=== PATIENT | male | born 1990 | race Caucasian/White ===

== ENCOUNTER 2022-12-01 10:02 | Emergency (ER) | payer OTHER, MEDICAID, SELFPAY ==
[2022-12-01 10:08] VITALS: BP 132/83; PULSE 101; RESP 16; TEMP 36.3; O2SAT 97; BMI 29.7
--- NOTE | 2022-12-01 10:30 | CRLHL7_ITS ---
For Patients: As a result of the Cures Act, medical imaging exams and procedure reports are released immediately into your electronic medical record. You may view this report before your referring provider. If you have questions, please contact your health care provider. Indication: Trauma. Technique: Left 3rd finger 3 views. Comparison: None. Findings: Bones: Alignment is normal. No fractures or bone lesions. Joint spaces: Unremarkable. Soft tissues: Unremarkable. Impression: No sign of acute injury. Dictated by Jono Walker MD @ 12/01/2022 10:50:10 AM (Electronically Signed)
--- NOTE | 2022-12-01 10:33 | ED_ITS ---
HPI - General Adult General Chief complaint: Extremity Pain/Injury, Upper Stated complaint: L hand middle finger pain Time Seen by Provider: 12/01/22 10:19 History of Present Illness HPI narrative: This 32-year-old male comes in with an injury to the distal portion of his left middle finger. He was using his snow throat or and it became jammed. He knows that he did the wrong thing by trying to release that by this wiping his hand into the auger with the engine running in the auger Dr. Farmer. He injured the distal portion of the left middle finger. He has erythema there but there is no break in the skin. About fiber 10 minutes after the injury event he became lightheaded temporarily but did not lose consciousness. He does not report any other injury. Related Data Home Medications Medication Instructions Recorded Confirmed lurasidone 60 mg tablet (Latuda) 60 mg PO QDAY 03/07/22 12/01/22 dextroamphetamine-amphetamine ER 1 cap PO QAM 12/01/22 12/01/22 20 mg 24hr capsule,extend release (Adderall XR) propranolol 20 mg tablet 20 mg PO BID 12/01/22 12/01/22 Allergies Allergy/AdvReac Type Severity Reaction Status Date / Time No Known Drug Allergies Allergy Verified 12/01/22 10:11 Review of Systems Status of ROS: Reports: 10 or more systems reviewed and unremarkable except as noted in History and below Narrative: Constitutional: No fevers, no weight gain or loss. Eyes: No discharge. No vision changes. HENT: No congestion, no sore throat, no ear pain. Cardiovascular: No chest pain, no palpitations. Respiratory: No shortness of breath, no wheezes, no cough. Gastrointestinal: No abdominal pain, no vomiting, no diarrhea. Genitourinary: No dysuria, no hematuria. Musculoskeletal: Normal range of motion. Left middle finger injury as described above. Skin: No rashes, no pruritis. Neurological: No dizziness, weakness, sensory change, speech change. Endo/Heme/Allergies: No bruising or bleeding. No polydipsia. Pysch: no suicidality, no anxiety, no insomnia. All other systems reviewed and are negative. PFSH PFSH Social History Smoking Status: Former smoker Do you use any of these nicotine containing products: Vaping Products How often do you have a drink containing alcohol: never AUDIT-C Alcohol total score: 0 Non-prescribed substance use: denies use Exam Narrative: Exam Narrative: Constitutional: Well-developed, well-nourished, no acute distress. HEENT: Normocephalic, atraumatic. Neck: Normal range of motion. Nontender. Supple. Heart: Intact distal pulses. Lungs: No chest discomfort. No wheezes, rhonchi, or rales. Abdomen: Nontender. Back: Normal range of motion. Extremities: Normal range of motion. Distal portion of the left middle finger has erythema without any sign of abrasion or laceration. There is no subungual hematoma. Range of motion is intact. Skin: Intact. No rash. Warm. No erythema or pallor. Neurologic: No altered sensation. No weakness. Alert and oriented. Psychiatric: No suicidality. No anxiety or depression. No insomnia. Nursing notes and vitals signs are reviewed. Const: Vital Signs, click to edit/add: Vital Signs - 24 hr 12/01/22 10:08 Temperature 97.4 F L Pulse Rate [Left P ulse Oximeter] 101 H Respiratory Rate 16 Blood Pressure [Ri ght Upper Arm] 132/83 Pulse Oximetry 97 Oxygen Delivery Me thod Room Air Course Vital Signs Vital signs: Initial Vital Signs Temperature 97.4 F L 12/01/22 10:08 Temperature Source Temporal Artery Scan 12/01/22 10:08 Pulse Rate 101 H 12/01/22 10:08 Respiratory Rate 16 12/01/22 10:08 Blood Pressure 132/83 12/01/22 10:08 Blood Pressure Mean 99 12/01/22 10:08 Blood Pressure Position Sitting 12/01/22 10:08 Pulse Oximetry 97 12/01/22 10:08 Oxygen Delivery Method Room Air 12/01/22 10:08 Vital Signs Temperature 97.4 F L 12/01/22 10:08 Pulse Rate 101 H 12/01/22 10:08 Respiratory Rate 16 12/01/22 10:08 Blood Pressure 132/83 12/01/22 10:08 Pulse Oximetry 97 12/01/22 10:08 Oxygen Delivery Method Room Air 12/01/22 10:08 Temperature 97.4 F L 12/01/22 10:08 Pulse Rate 101 H 12/01/22 10:08 Respiratory Rate 16 12/01/22 10:08 Blood Pressure 132/83 12/01/22 10:08 Pulse Oximetry 97 12/01/22 10:08 Oxygen Delivery Method Room Air 12/01/22 10:08 Medical Decision Making MDM Narrative Medical decision making narrative: This patient comes in with an injury to his left middle finger. There is no abrasion or laceration. He does have some erythema from a contusion. X-ray images show no acute findings. He is okay to be discharged home and encouraged use [id number] medicines as needed and directed. Imaging Data XR L Middle Finger: Radiologist's impression: No sign of acute injury. Discharge Plan Discharge Clinical Impression: Finger injury Patient Disposition: Home, Self-Care Condition: Stable Additional Instructions: Use [id number] medicines as needed and directed. Follow up with MD return if worsening. Prescriptions: No Action Latuda 60 mg tablet 60 mg PO QDAY Patient Comments: TAKE 1 TABLET BY MOUTH DAILY IN THE EVENING WITH FOOD dextroamphetamine-amphetamine [Adderall XR] 20 mg capsule,extended release 24hr 1 cap PO QAM propranolol 20 mg tablet 20 mg PO BID Follow Up/Referrals: Provider,Not a Local [Primary Care Provider] - Stand Alone Forms: [employer] Info Instructions
== END 2022-12-01 11:33 | disposition home or self-care (01) ==
PROVIDERS: Emergency Provider Emergency Medicine Emergency Medical Services
DX: S67.192A Crushing injury of right middle finger, initial encounter (principal); W31.89XA Contact with other specified machinery, initial encounter
CPT/HCPCS: 73140; 99283; 99284

== ENCOUNTER 2023-08-01 14:00 | Outpatient (CLI) | payer OTHER, MEDICAID, SELFPAY | END 2023-08-01 14:01 | disposition home or self-care (01) | PROVIDERS: Visit Provider Nurse Practitioner Family | DX: Z11.3 Encounter for screening for infections with a predominantly sexual mode of transmission (principal); Z72.51 High risk heterosexual behavior | CPT/HCPCS: 86592; 86703 ==

== ENCOUNTER 2023-08-05 16:45 | Emergency (ER) | payer OTHER, MEDICAID, SELFPAY ==
[2023-08-05 17:38] VITALS: BP 134/90; PULSE 90; RESP 18; TEMP 36.9; O2SAT 98; BMI 31.7
--- NOTE | 2023-08-05 20:33 | CRLHL7_ITS ---
For Patients: As a result of the Century Cures Act, medical imaging exams and procedure reports are released immediately into your electronic medical record. You may view this report before your referring provider. If you have questions, please contact your health care provider. INDICATION: Fever/cough TECHNIQUE: Two view chest. FINDINGS: The lungs are clear. The heart, mediastinum and pulmonary vessels are of normal size. There is no evidence of pleural disease. IMPRESSION: Negative chest. Dictated by Conchita Rodriguez MD @ 08/05/2023 9:55:58 PM (Electronically Signed)
[2023-08-05 20:50] LABS: Lactate* 1.7 mmol/L (0.5-1.9)
[2023-08-05 20:51] LABS: Basophils Absolute Auto 0.06 K/uL (0.00-0.30); Basophils Percent Auto 0.6 % (0.0-3.0); Eosinophils Absolute Auto 0.64 K/uL (0.00-0.50); Eosinophils Percent Auto 6.1 % (0.0-7.0); Hematocrit 42.4 % (37.0-53.0); Hemoglobin* 14.6 gm/dL (13.5-17.5); Immature Granulocytes Abs Auto 0.02 K/uL (0.00-0.30); Immature Granulocytes Pct Auto 0.2 %; Lymphocytes Absolute Auto 3.25 K/uL (0.90-2.90); Lymphocytes Percent Auto 31.1 % (20-44); Mean Corpuscular HGB Conc 34 gm/dL (32-36); Mean Corpuscular Hemoglobin 30 pg (26-34); Mean Corpuscular Volume 87 fL (80-100); Neutrophils Absolute Auto 5.86 K/uL (1.7-7.0); Platelet Count* 307 K/uL (140-440); RDW Coefficient of Variation % 12.1 % (11.5-15.5); Red Blood Count 4.89 m/uL (4.30-5.90); Slide Review Reflex No; White Blood Count* 10.46 K/uL (4.50-11.00)
[2023-08-05 21:08] LABS: Chloride* 104 mmol/L (96-114); Potassium* 3.8 mmol/L (3.6-5.1); Sodium* 138 mmol/L (135-149)
[2023-08-05 21:11] LABS: Anion Gap 9 mEq/L (7-15); Blood Urea Nitrogen* 18 mg/dL (5-24); Carbon Dioxide* 25 mmol/L (20-32); Creatinine* 0.9 mg/dL (0.5-1.5); Estimated Glomerular Filt Rate 115 ml/min
[2023-08-05 21:12] LABS: Calcium* 9.5 mg/dL (8.4-10.6); Glucose* 117 mg/dL (60-115)
[2023-08-05 21:17] LABS: C Reactive Protein* < 0.5 mg/dL (0.5-1.0)
[2023-08-05 22:33] LABS: Erythrocyte SedimentationRate* 6 mm/hr (2-15)
--- NOTE | 2023-08-05 22:33 | ED.GENADULT ---
HPI - General Adult General Date Seen: 08/05/23 Chief complaint: Back Injury/Pain Stated complaint: Fever 11 days, back pain Time Seen by Provider: 08/05/23 20:25 Source: patient Mode of arrival: ambulatory Limitations: no limitations History of Present Illness HPI narrative: Patient is a 32-year-old male who here with complaints of low back pain and associated fever. He tells me that about a week and half ago he was ill with cold and flu symptoms and temperatures up to 101-102. He was not evaluated at that time. Those symptoms lasted several days and then improved. He has a little bit of mild residual cough but not significant. About a week ago he developed some low back pain which was mild, by this morning it was bothering him more just across his low back. He went to a chiropractor and felt improved after chiropractic manipulation, but says that his temperature has still been 99.5-99.8 over the past week, and when he looked online and it said if you have back pain and a fever you need to be seen in an ER. Currently he is feeling pretty well. He has not had any rigors or significant body aches, no vomiting, no urinary symptoms, no radiating pain, numbness weakness bowel or bladder changes. No trauma. He notes that he had a ?high risk sexual encounter few weeks ago, was seen couple weeks ago and had HIV testing which was negative. He does acknowledge a history of IV drug use remotely but says he has not used anything like that for many years. Related Data Home Medications Medication Instructions Recorded Confirmed dextroamphetamine-amphetamine ER 1 cap PO QAM 12/01/22 08/05/23 20 mg 24hr capsule,extend release (Adderall XR) lamotrigine 100 mg tablet mg PO 08/05/23 trazodone 100 mg tablet 100 mg PO QPM 08/05/23 08/05/23 Allergies Allergy/AdvReac Type Severity Reaction Status Date / Time No Known Drug Allergies Allergy Verified 08/05/23 17:45 Review of Systems Status of ROS: Reports: 10 or more systems reviewed and unremarkable except as noted in History and below PFSH PFSH Social History Smoking Status: Former smoker Do you use any of these nicotine containing products: Vaping Products How often do you have a drink containing alcohol: never AUDIT-C Alcohol total score: 0 Non-prescribed substance use: denies use Exam Narrative: Exam Narrative: Vital signs as noted above. In general, an alert, well-appearing patient. Head: Normocephalic, atraumatic. Eyes: Pupils are equal reactive. Extraocular movements are full. Conjunctivae are normal. ENT: Mucous membranes are moist. Throat is normal. Neck: Supple without lymphadenopathy. Heart: Regular rate and rhythm. No murmur or rub. Lungs: Clear bilaterally. No increased work of breathing, crackles or wheezes. Abdomen: Soft and nontender. No organomegaly. Back: Mild low back tenderness without rebound guarding or rigidity. Range of motion preserved. Extremities: Well perfused. No edema. No calf tenderness. Pulses intact. Neurologic: Patient is alert and oriented to person and place. Speech is fluent. Face is symmetric. Moves all extremities equally. Gait normal, strength equal in lower extremities. Affect: Normal. Skin: Warm and dry. Well perfused. Const: Vital Signs, click to edit/add: Vital Signs - 24 hr 08/05/23 17:38 Temperature 98.4 F Pulse Rate [Right Pulse Oximeter] 90 Respiratory Rate 18 Blood Pressure [Ri ght Upper Arm] 134/90 H Pulse Oximetry 98 Oxygen Delivery Me thod Room Air Course Course ED Course: Overall, patient is nontoxic in presentation, exam is benign. He is afebrile here, reporting temperatures which are normal at home which he is presenting as fever. Discussed that temperatures of 99.5-99.8 are technically normal. I did check a few labs including a CBC which showed a normal white blood cell count 10.5, normal diff, a CRP which was normal and sed rate which was normal, electrolytes and lactate all of which were normal. UA showed 2-5 reds in 2-5 whites no bacteria. My suspicion for epidural abscess, diskitis, pyelonephritis, or other infectious cause for his back pain is very low. I think it is reasonable to treat symptomatically and see how he does over the next few days. Reviewed with him if he is acutely worse, has severe uncontrolled pain, high fevers, shaking chills, neurologic changes he should return to the emergency department at any time for re-evaluation. Otherwise, ibuprofen and Tylenol, ice and/or heat, chiropractic if that is helpful for him. Primary care follow-up if not improving over the next 1-2 weeks. Vital Signs Vital signs: Initial Vital Signs Temperature 98.4 F 08/05/23 17:38 Temperature Source Temporal Artery Scan 08/05/23 17:38 Pulse Rate 90 08/05/23 17:38 Respiratory Rate 18 08/05/23 17:38 Blood Pressure 134/90 H 08/05/23 17:38 Blood Pressure Mean 104 08/05/23 17:38 Blood Pressure Position Sitting 08/05/23 17:38 Pulse Oximetry 98 08/05/23 17:38 Oxygen Delivery Method Room Air 08/05/23 17:38 Vital Signs Temperature 98.4 F 08/05/23 17:38 Pulse Rate 90 08/05/23 17:38 Respiratory Rate 18 08/05/23 17:38 Blood Pressure 134/90 H 08/05/23 17:38 Pulse Oximetry 98 08/05/23 17:38 Oxygen Delivery Method Room Air 08/05/23 17:38 Temperature 98.4 F 08/05/23 17:38 Pulse Rate 90 08/05/23 17:38 Respiratory Rate 18 08/05/23 17:38 Blood Pressure 134/90 H 08/05/23 17:38 Pulse Oximetry 98 08/05/23 17:38 Oxygen Delivery Method Room Air 08/05/23 17:38 Medical Decision Making Lab Data Labs: Lab Results 08/05/23 08/05/23 Range/Units 17:26 20:42 WBC 10.46 (4.50-11.00) K/uL RBC 4.89 (4.30-5.90) m/uL Hgb 14.6 (13.5-17.5) gm/dL Hct 42.4 (37.0-53.0) % MCV 87 (80-100) fL MCH 30 (26-34) pg MCHC 34 (32-36) gm/dL RDW Coeff of [place] 12.1 (11.5-15.5) % Plt Count 307 (140-440) K/uL Neut % (Auto) 56.0 (42.0-72.0) % Lymph % (Auto) 31.1 (20-44) % [place] % (Auto) 6.0 (0.0-11.0) % Eos % (Auto) 6.1 (0.0-7.0) % Baso % (Auto) 0.6 (0.0-3.0) % Neut # (Auto) 5.86 (1.7-7.0) K/uL Lymph # (Auto) 3.25 H (0.90-2.90) K/uL [place] # (Auto) 0.60 (0.00-0.90) K/UL Eos # (Auto) 0.64 H (0.00-0.50) K/uL Baso # (Auto) 0.06 (0.00-0.30) K/uL Abs Immat Gran (auto) 0.02 (0.00-0.30) K/uL Imm/Tot Granulo (auto) 0.2 % Sodium 138 (135-149) mmol/L Potassium 3.8 (3.6-5.1) mmol/L Chloride 104 (96-114) mmol/L Carbon Dioxide 25 (20-32) mmol/L Anion Gap 9 (7-15) mEq/L BUN 18 (5-24) mg/dL Creatinine 0.9 (0.5-1.5) mg/dL Estimated Creat Clear 130.70 Estimated GFR 115 ml/min Glucose 117 H (60-115) mg/dL Lactate 1.7 (0.5-1.9) mmol/L Calcium 9.5 (8.4-10.6) mg/dL C-Reactive Protein < 0.5 L (0.5-1.0) mg/dL Urine RBC 2-5 A (0-2) Urine WBC 2-5 (0-5) Ur Squamous Epith Cells None (None-Few) Urine Bacteria None (None) Discharge Plan Discharge Clinical Impression: Low back pain Patient Disposition: Home, Self-Care Condition: Stable Instructions: Acute Low Back Pain (ED) Additional Instructions: Ibuprofen 400 mg plus Tylenol 1000 mg 3 times daily as needed, ice and/or heat, dog daycare provider if this is helpful for you. For high fevers, severe pain, numbness or weakness, bowel bladder changes, return any time to the emergency department. Otherwise, primary care follow-up if your back is not improving over the next 1-2 weeks. Prescriptions: No Action dextroamphetamine-amphetamine [Adderall XR] 20 mg capsule,extended release 24hr 1 cap PO QAM trazodone 100 mg tablet 100 mg PO QPM lamotrigine 100 mg tablet PO Follow Up/Referrals: Provider,Not a Local [Primary Care Provider] - Stand Alone Forms: [employer] Info Instructions
== END 2023-08-05 21:33 | disposition home or self-care (01) ==
PROVIDERS: Emergency Provider Emergency Medicine
DX: M54.50 Low back pain, unspecified (principal)
CPT/HCPCS: 36415; 71046; 80048; 81015; 83605; 85025; 85651; 86140; 99284

== ENCOUNTER 2024-09-24 15:40 | Outpatient (CLI) | payer MEDICAID, SELFPAY | END 2024-09-24 15:41 | disposition home or self-care (01) | LOC: NFLDUCREF 15:40 | PROVIDERS: Visit Provider Nurse Practitioner | DX: M79.675 Pain in left toe(s) (principal) | CPT/HCPCS: 84550 ==